=== PATIENT | male | born 1975 | race Caucasian/White ===

== ENCOUNTER 2023-05-13 08:55 | Emergency (ER) | payer MEDICARE, MEDICAID ==
[~2023-05-13] VITALS: Ht 175.3 cm; Wt 128.6 kg
[~2023-05-13 08:55] MED LIST: NO HOME MEDS
[2023-05-13 09:32] LABS: BASOPHILS % (AUTO) 0.3 % (0-1); EOSINOPHILS # (AUTO) 0.1 X10'3 (0-0.9); HEMATOCRIT 47.8 % (42.0-52.0); HEMOGLOBIN 16.2 g/dl (14.0-17.9); LYMPHOCYTES # (AUTO) 2.4 X10'3 (1.1-4.8); LYMPHOCYTES % (AUTO) 25.9 % (21-51); MEAN CORPUSCULAR HEMOGLOBIN 29.4 PG (27.0-31.0); MEAN CORPUSCULAR HGB CONC 33.9 g/dL (33.0-36.5); MEAN CORPUSCULAR VOLUME 86.7 FL (78-98); MEAN PLATELET VOLUME 7.2 FL (7.4-10.4); MONOCYTES # (AUTO) 0.6 X10'3 (0-0.9); MONOCYTES % (AUTO) 6.9 % (2-12); NEUTROPHILS # (AUTO) 6.1 X10'3 (1.8-7.7); NEUTROPHILS % (AUTO) 65.9 % (42-75); PLATELET COUNT 387 X10'3 (140-440); RED BLOOD COUNT 5.51 X10'6 (4.70-6.10); RED CELL DISTRIBUTION WIDTH 13.7 % (11.5-14.5); WHITE BLOOD COUNT 9.3 X10'3 (4.5-11.0)
[2023-05-13 09:56] LABS: ALANINE AMINOTRANSFERASE 45 U/L (12-78); ALBUMIN 4.5 G/DL (3.4-5.0); ALBUMIN/GLOBULIN RATIO 1.2 (1.1-1.5); ALKALINE PHOSPHATASE 99 IU/L (46-116); ANION GAP 10 (8-16); ASPARTATE AMINO TRANSFERASE 27 U/L (10-37); BILIRUBIN,TOTAL 0.6 MG/DL (0.1-1.0); BLOOD UREA NITROGEN 11 MG/DL (7-18); BUN/CREATININE RATIO 11.8 (10.0-20.0); CALCIUM 9.5 MG/DL (8.5-10.1); CHLORIDE 103 MMOL/L (99-107); CREATININE 0.93 MG/DL (0.60-1.10); GLUCOSE 119 MG/DL (70-104); POTASSIUM 3.4 MMOL/L (3.5-5.1); SODIUM 141 MMOL/L (135-145); TOTAL CARBON DIOXIDE 28.3 MMOL/L (24-32); TOTAL PROTEIN 8.3 G/DL (6.4-8.2); eCRCL 100 ML/MIN; eGFR 88 ML/MIN
[2023-05-13 10:02] LABS: PRO BRAIN NATRIURETIC PEPTIDE 35 PG/ML (0-125)
[2023-05-13 12:19] VITALS: BP 140/95; PULSE 66; RESP 18; TEMP 97.3; O2SAT 99
== END 2023-05-13 12:24 | disposition home or self-care (01) ==
LOC: ER 08:55
DX: R07.9 Chest pain, unspecified (principal); F41.9 Anxiety disorder, unspecified; J45.909 Unspecified asthma, uncomplicated; Z79.899 Other long term (current) drug therapy
CPT/HCPCS: 36415; 71045; 80053; 83880; 84484; 85025; 93005; 99285

== ENCOUNTER 2023-12-26 18:26 | Emergency (ER) | payer MEDICARE, MEDICAID ==
[~2023-12-26] VITALS: Ht 165.1 cm; Wt 120.5 kg
[2023-12-26 18:40] VITALS: TEMP 98.5
[2023-12-26 19:35] LABS: BASOPHILS % (AUTO) 0.3 % (0-1); EOSINOPHILS # (AUTO) 0.2 X10'3 (0-0.9); EOSINOPHILS % (AUTO) 1.4 % (0-6); HEMATOCRIT 46.1 % (42.0-52.0); HEMOGLOBIN 15.4 g/dl (14.0-17.9); LYMPHOCYTES # (AUTO) 2.5 X10'3 (1.1-4.8); LYMPHOCYTES % (AUTO) 18.7 % (21-51); MEAN CORPUSCULAR HEMOGLOBIN 29.1 PG (27.0-31.0); MEAN CORPUSCULAR HGB CONC 33.5 g/dL (33.0-36.5); MEAN CORPUSCULAR VOLUME 87.1 FL (78-98); MEAN PLATELET VOLUME 7.4 FL (7.4-10.4); MONOCYTES # (AUTO) 0.8 X10'3 (0-0.9); MONOCYTES % (AUTO) 5.9 % (2-12); NEUTROPHILS % (AUTO) 73.7 % (42-75); PLATELET COUNT 361 X10'3 (140-440); RED BLOOD COUNT 5.29 X10'6 (4.70-6.10); RED CELL DISTRIBUTION WIDTH 13.5 % (11.5-14.5); WHITE BLOOD COUNT 13.5 X10'3 (4.5-11.0)
[2023-12-26 19:37] VITALS: BP 131/82; PULSE 61; RESP 12; O2SAT 96
[2023-12-26 19:49] LABS: ALANINE AMINOTRANSFERASE 49 U/L (12-78); ALBUMIN 3.9 G/DL (3.4-5.0); ALBUMIN/GLOBULIN RATIO 1.1 (1.1-1.5); ALKALINE PHOSPHATASE 80 IU/L (46-116); ANION GAP 7 (8-16); ASPARTATE AMINO TRANSFERASE 18 U/L (10-37); BILIRUBIN,TOTAL 0.6 MG/DL (0.1-1.0); BLOOD UREA NITROGEN 10 MG/DL (7-18); BUN/CREATININE RATIO 10.5 (10.0-20.0); CALCIUM 9.1 MG/DL (8.5-10.1); CHLORIDE 107 MMOL/L (99-107); CREATININE 0.95 MG/DL (0.60-1.10); GLUCOSE 94 MG/DL (70-104); LIPASE 29 U/L (16-77); POTASSIUM 3.6 MMOL/L (3.5-5.1); SODIUM 142 MMOL/L (135-145); TOTAL CARBON DIOXIDE 28.2 MMOL/L (24-32); TOTAL PROTEIN 7.3 G/DL (6.4-8.2); eCRCL 85 ML/MIN; eGFR 85 ML/MIN
[2023-12-26] MEDS ORDERED: METR-159 PO (20:08)
== END 2023-12-26 20:33 | disposition home or self-care (01) ==
LOC: ER 18:27
DX: K52.89 Other specified noninfective gastroenteritis and colitis (principal); J45.909 Unspecified asthma, uncomplicated
CPT/HCPCS: 36415; 80053; 83690; 85025; 99283